=== PATIENT | female | born 1990 | race Hispanic/Latino ===

== ENCOUNTER 2019-04-04 19:59 | Emergency (ER) | payer BC, MEDICAID, OTHER ==
[2019-04-04] MEDS ORDERED: ACETAMINOPHEN 325 MG TAB ONE (20:25)
[2019-04-04 20:52] LABS: APPEARANCE,URINE Clear (CLEAR); BILIRUBIN,URINE Negative (NEGATIVE); COLOR,URINE Yellow (YELLOW); GLUCOSE, URINE (UA) Negative (NEGATIVE); KETONES,URINE >=160 mg/dL (NEGATIVE); LEUKOCYTE ESTERASE ,URINE Negative (NEGATIVE); NITRATE,URINE Negative (NEGATIVE); OCCULT BLOOD,URINE Large (NEGATIVE); PH,URINE 5.5 (5.0-8.0); PROTEIN,URINE Negative (NEGATIVE)
[2019-04-04 21:02] LABS: HCG,QUAL RESULT POSITIVE (NEGATIVE)
[2019-04-04 21:04] LABS: RAPID GROUP A STREP NEGATIVE (NEGATIVE)
[2019-04-04 21:24] LABS: BACTERIA,URINE Few /HPF (None Seen); WBC,URINE 0-1 /HPF (0-1)
== END 2019-04-04 21:38 | disposition home or self-care (01) ==
LOC: EDH 19:59
DX: O99.511 Diseases of the respiratory system complicating pregnancy, first trimester (principal); J10.1 Influenza due to other identified influenza virus with other respiratory manifestations; Z3A.00 Weeks of gestation of pregnancy not specified
CPT/HCPCS: 81001; 81025; 87804; 87880

== ENCOUNTER 2019-09-21 22:42 | Inpatient (IN) | payer MEDICAID ==
[~2019-09-21] VITALS: Ht 160 cm; Wt 71.7 kg
[2019-09-21] MEDS: AMPICILLIN 1GM+NS 50ML 50 ML IV SCH (11:30)
[2019-09-21] MEDS ORDERED: NALOXONE HCL 0.4 MG/1 ML ML IV PRN (23:00)
[2019-09-21] MEDS ORDERED: LACTATED RINGERS 500 ML 500 ML IV PRN (23:00)
[2019-09-21] MEDS ORDERED: ROPIVACAINE 0.2% 100ML VIAL 100 ML EP SCH (23:00)
[2019-09-21] MEDS ORDERED: EPHEDRINE SULFATE 50 MG/ML AMPULE IVP PRN (23:00)
[2019-09-21] MEDS ORDERED: PROMETHAZINE HCL 25 MG/ML 1ML AMPULE IM PRN (23:00)
[2019-09-21] MEDS ORDERED: AMPICILLIN 2GM+NS 100ML 100 ML IV SCH (23:30)
[2019-09-21 23:32] LABS: HEMATOCRIT 30.1 % (36-48); MEAN CORPUSCULAR HEMOGLOBIN 31.5 pg (27.0-33.0); MEAN CORPUSCULAR HGB CONC 35.3 g/dL (32.0-36.0); MEAN CORPUSCULAR VOLUME 89.2 fL (79-99); PLATELET COUNT (AUTO) 153 K/uL (130-400); RED BLOOD CELL COUNT(AUTO) 3.38 MIL/uL (4.00-5.50); RED CELL DISTRIBUTION WIDTH 12.8 % (11.0-15.5); WHITE BLOOD COUNT (AUTO) 8.4 K/uL (4.8-10.8)
[2019-09-21 23:34] LABS: APPEARANCE,URINE CLEAR (CLEAR); BILIRUBIN,URINE NEGATIVE (NEGATIVE); COLOR,URINE YELLOW (YELLOW); GLUCOSE, URINE (UA) NEGATIVE (NEGATIVE); KETONES,URINE NEGATIVE (NEGATIVE); LEUKOCYTE ESTERASE ,URINE LARGE (NEGATIVE); NITRATE,URINE NEGATIVE (NEGATIVE); OCCULT BLOOD,URINE LARGE (NEGATIVE); PH,URINE 6.5 (5.0-8.0); PROTEIN,URINE NEGATIVE (NEGATIVE)
[2019-09-21 23:41] LABS: AMPHET/METH SCREEN,URINE NEGATIVE (NEGATIVE); BARBITURATE SCREEN, URINE NEGATIVE (NEGATIVE); BENZODIAZEPINES SCREEN,URINE NEGATIVE (NEGATIVE); CANNABINOID SCREEN,URINE NEGATIVE (NEGATIVE); COCAINE SCREEN,URINE NEGATIVE (NEGATIVE); OPIATE SCREEN,URINE NEGATIVE (NEGATIVE); PHENCYCLIDINE SCREEN,URINE NEGATIVE (NEGATIVE)
[2019-09-21 23:48] LABS: BACTERIA,URINE Moderate /HPF (None Seen); SQUAMOUS EPITHELIAL CELL,UR Moderate /HPF (0-2)
[2019-09-22] MEDS: LACTATED RINGERS 1000ML 1,000 ML IV PRN ×3 (00:06→06:25)
[2019-09-22 00:09] VITALS: BP 121/68
[2019-09-22] MEDS: AMPICILLIN 1GM+NS 50ML 50 ML IV SCH ×2 (03:53→07:26)
[2019-09-22] MEDS ORDERED: OXYTOCIN-LR 20 UNITS/1000 ML 1,000 ML IV ONE (04:34)
[2019-09-22] MEDS ORDERED: OXYTOCIN 10 USP UNITS/ML 20 UNIT in LACTATED RINGERS 1000ML 1,000 ML IV SCH (05:00)
[2019-09-22] MEDS: MEPERIDINE-PF 50 MG/ML SYG IVP PRN (08:56)
[2019-09-22] MEDS ORDERED: DIPH,PERTUSS(ACELL),TET VAC/PF 0.5 ML VIAL IM PRN (10:15)
[2019-09-22] MEDS ORDERED: WITCH HAZEL 1 PAD TP PRN (10:15)
[2019-09-22] MEDS ORDERED: BENZOCAINE/LANOLIN/ALOE VERA 60 ML AEROSOL TP PRN (10:15)
[2019-09-22] MEDS ORDERED: ACETAMINOPHEN 325 MG TAB PO PRN (10:15)
[2019-09-22] MEDS ORDERED: ACETAMINOPHEN-CODEINE 300/30MG TAB PO PRN (10:15)
[2019-09-22] MEDS: OXYTOCIN-LR 20 UNITS/1000 ML 1,000 ML IV SCH (10:15)
[2019-09-22] MEDS ORDERED: LANOLIN 30GM OINTMENT TP PRN (10:15)
[2019-09-22] MEDS ORDERED: MEASLES/MUMPS/RUBELLA VACCINE, LIVE 0.5 ML/VIAL SQ PRN (10:15)
[2019-09-22 11:30] VITALS: BP 123/72
[2019-09-22] MEDS: IBUPROFEN 600 MG TABLET PO PRN (13:35)
--- NOTE | 2019-09-22 14:30 | NUR ---
LATE - +UDS for THC and COCAINE 08/03/19 Sw met with pt who lives with her common law of 12 yrs Noe Mendzoa [phone]. Pt states [place] [facility] [address] [place] with their 5 kids, ages - 11-Miranda, 10 Noe, 4 Luis Armando 2 Calvin and NB Franc Michael Mauriceu. 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 Couple has basic items for NB including a car seat and [facility] will follow NB after dc.Mom Kari Copeland [phone] provided support to pt and family. Pt admits to late care and states she was +for THC and Cocaine at first visit on 08/03/19. Pt admits she was a daily THC abuser prior to confirmation but denies that she abuses cocaine. "I don't know how I was + since I don't do that stuff". I also shared that she shared blunts with friends and it could have been in one she smoked. Pt has hx of THC abuse since 5 years and denies husbands uses. Pt denies hx of abuse domestic violence mental health or legal issues. Jazz is nursery made aware of above and will do UDS and Meconium test on baby for CPS reporting purposes. SW called local CPS office. Pt's last case was 2014, nothing open at this time. New report made as requested by CPS to Jacque bryan [id number] ID # [id number]. Waiting for CPS contact.
[2019-09-22 16:46] VITALS: BP 128/84
[2019-09-22 19:34] VITALS: BP 104/73
[2019-09-22] MEDS: DOCUSATE SODIUM 100 MG CAP PO SCH (21:41)
[2019-09-22 23:30] VITALS: BP 109/53
[2019-09-23] MEDS: IBUPROFEN 600 MG TABLET PO PRN ×2 (01:40→09:42)
[2019-09-23 03:33] VITALS: BP 100/69
[2019-09-23 06:37] LABS: HEMATOCRIT 27.7 % (36-48); MEAN CORPUSCULAR HEMOGLOBIN 31.3 pg (27.0-33.0); MEAN CORPUSCULAR HGB CONC 34.3 g/dL (32.0-36.0); MEAN CORPUSCULAR VOLUME 91.4 fL (79-99); NUCLEATED RED BLOOD CELLS 0.1 % (0.0-0.19); PLATELET COUNT (AUTO) 143 K/uL (130-400); RED BLOOD CELL COUNT(AUTO) 3.03 MIL/uL (4.00-5.50); RED CELL DISTRIBUTION WIDTH 12.6 % (11.0-15.5)
[2019-09-23 07:30] VITALS: BP 121/60
[2019-09-23] MEDS: AMPICILLIN 1GM+NS 50ML 50 ML IV SCH (07:30)
[2019-09-23 08:12] LABS: HEPATITIS Bs ANTIGEN SCREEN P Negative (Negative)
[2019-09-23] MEDS: DOCUSATE SODIUM 100 MG CAP PO SCH (09:41)
[2019-09-23] MEDS: OXYTOCIN-LR 20 UNITS/1000 ML 1,000 ML IV SCH (10:15)
[2019-09-23] MEDS: MEPERIDINE-PF 50 MG/ML SYG IVP PRN (11:03)
[2019-09-23 11:51] VITALS: BP 121/72
--- NOTE | 2019-09-23 14:48 | NUR ---
CPS SW recd call from Jaimie Dumont [id number]. Monitors have been located and CPS to meet them at hospital to sign safety plan with pt. CPS to be here abut 3:30 to complete paperwork and will provide copy of plan so baby can dc with mom and monitor.
[2019-09-23 16:23] VITALS: BP 125/79
--- NOTE | 2019-09-23 18:00 | NUR ---
PATIENT LEFT UNIT VIA WHEELCHAIR. BABY IS SECURE IN CARSEAT. PERSONAL VEHICLE USED FOR TRANSPORTATION ACCOMPANIED BY FAMILY. NO COMPLAINTS OR CONCERNS ADDRESSED FROM PATIENT ON DISCHARGE
== END 2019-09-23 18:00 | disposition home or self-care (01) | DRG 560 ==
LOC: LDH 22:42 → WSH 09-22 11:29
PROVIDERS: ADMIT Obstetrics & Gynecology; ATTEND Obstetrics & Gynecology
PROC: 10E0XZZ Delivery of Products of Conception, External Approach (ICD-10-PCS; principal; 2019-09-22)
PROC: 3E033VJ Introduction of Other Hormone into Peripheral Vein, Percutaneous Approach (ICD-10-PCS; 2019-09-22)
PROC: 3E0234Z Introduction of Serum, Toxoid and Vaccine into Muscle, Percutaneous Approach (ICD-10-PCS; 2019-09-22)
PROC: 3E0134Z Introduction of Serum, Toxoid and Vaccine into Subcutaneous Tissue, Percutaneous Approach (ICD-10-PCS; 2019-09-22)
DX: O80 Encounter for full-term uncomplicated delivery (principal); Z37.0 Single live birth; Z23 Encounter for immunization; Z3A.40 40 weeks gestation of pregnancy
CPT/HCPCS: 36415; 80305; 81001; 85027; 86592; 86850; 86900; 86901; 87340; G0378; J0290; J2175; J2550; J2590; J7120

== ENCOUNTER 2021-01-31 14:40 | Emergency (ER) | payer MEDICAID, OTHER ==
[2021-01-31 15:07] LABS: BASOPHILS % (AUTO) 0.2 % (0.0-5.0); EOSINOPHILS % (AUTO) 0.6 % (0.0-8.0); LYMPHOCYTES % (AUTO) 7.6 % (21.0-51.0); MEAN CORPUSCULAR HEMOGLOBIN 30.9 pg (27.0-33.0); MEAN CORPUSCULAR HGB CONC 34.7 g/dL (32.0-36.0); MEAN CORPUSCULAR VOLUME 89.1 fL (79-99); MONOCYTES % (AUTO) 4.3 % (3.0-13.0); PLATELET COUNT (AUTO) 316 K/uL (130-400); RED BLOOD CELL COUNT(AUTO) 5.05 MIL/uL (4.00-5.50); RED CELL DISTRIBUTION WIDTH 12.2 % (11.0-15.5); WHITE BLOOD COUNT (AUTO) 22.4 K/uL (4.8-10.8)
[2021-01-31] MEDS ORDERED: METOCLOPRAMIDE 10 MG/2 ML VIAL ONE (15:07)
[2021-01-31] MEDS ORDERED: DICYCLOMINE HCL 10 MG/ML 2ML AMP IM ONE (15:08)
[2021-01-31] MEDS ORDERED: KETOROLAC TROMETHAMINE 30MG/ML ONE (15:08)
[2021-01-31 15:10] LABS: APPEARANCE,URINE Cloudy (CLEAR); BILIRUBIN,URINE Negative (NEGATIVE); COLOR,URINE Dark Yellow (YELLOW); GLUCOSE, URINE (UA) Negative (NEGATIVE); KETONES,URINE 15 mg/dL (NEGATIVE); LEUKOCYTE ESTERASE ,URINE Moderate (NEGATIVE); NITRATE,URINE Negative (NEGATIVE); OCCULT BLOOD,URINE Large (NEGATIVE); PROTEIN,URINE POS 1+ mg/dL (NEGATIVE)
[2021-01-31] MEDS ORDERED: SODIUM CHLORIDE 0.9% 1000ML 1,000 ML IV ONE (15:11)
[2021-01-31 15:16] LABS: AMPHET/METH SCREEN,URINE NEGATIVE (NEGATIVE); BARBITURATE SCREEN, URINE NEGATIVE (NEGATIVE); BENZODIAZEPINES SCREEN,URINE POSITIVE (NEGATIVE); CANNABINOID SCREEN,URINE POSITIVE (NEGATIVE); COCAINE SCREEN,URINE POSITIVE (NEGATIVE); OPIATE SCREEN,URINE NEGATIVE (NEGATIVE); PHENCYCLIDINE SCREEN,URINE NEGATIVE (NEGATIVE)
[2021-01-31 15:18] LABS: HCG,QUAL RESULT NEGATIVE (NEGATIVE)
[2021-01-31 15:21] LABS: CREATININE 0.7 mg/dL (0.5-1.5); POTASSIUM 3.7 mmol/L (3.5-5.1)
[2021-01-31 15:25] LABS: ALBUMIN 4.4 g/dL (3.5-5.0); BACTERIA,URINE Few /HPF (None Seen); BILIRUBIN,TOTAL 0.5 mg/dL (0.2-1.0); SQUAMOUS EPITHELIAL CELL,UR Moderate /HPF (0-2); TOTAL PROTEIN, SERUM 8.7 g/dL (6.0-8.3)
[2021-01-31 15:26] LABS: MUCUS,URINE Few LPF (None Seen)
== END 2021-01-31 16:26 | disposition home or self-care (01) ==
LOC: EDH 14:40
DX: N39.0 Urinary tract infection, site not specified (principal); E86.0 Dehydration; F19.10 Other psychoactive substance abuse, uncomplicated; Z72.0 Tobacco use
CPT/HCPCS: 36415; 80053; 80305; 81001; 81025; 83690; 85025; 87088; 96361; 96372; 96374; 96375; 99284; J0500; J1885; J2765; J7030